=== PATIENT | male | born 1970 | race Caucasian/White ===

== ENCOUNTER 2016-12-01 06:51 | Emergency (ER) | payer BC ==
[~2016-12-01] VITALS: Ht 180.3 cm; Wt 107.6 kg
[~2016-12-01 06:51] MED LIST: ALLO100T PO; ASPEC81 PO; ATOR-24 PO; LISI-729 PO
[2016-12-01 06:55] VITALS: TEMP 36.6; O2SAT 99; Ht 180.3 cm; Wt 107.6 kg
--- NOTE | 2016-12-01 07:02 | EMERGENCY ROOM VISIT NOTE ---
History First contact with patient: 07:01 Chief Complaint: SYNCOPE Stated Complaint: SYNCOPE History of Present Illness The patient is a 46 year old male who presents to the Emergency Room with complaints of syncope which occurred approx 2 hours [employer]. The patient notes he was on the toilet and after finishing he stood up and became very diaphoretic. Soon after the patient felt dizzy and he slumped over onto the wall and suffered from a syncopal episode. It was witnessed by his uncle, no seizure like activity and no confusion after the episode. The patient denies any nausea / vomiting, chest pain, SOB, headache or palpitations prior to this episode. He has no significant cardiac history and had a negative cardiac cath in 2015 which was done for chest pain. His father did pass at the age of 38 from cardiac arrest. The patient is a non smoker. Patient has been suffering from sinusitis with ongoing rhinorrhea x 2 weeks after being treated with azithromycin. Review of Systems A 10 point review of systems was completed and was negative aside from above Past Medical/Surgical History Medical Problems: (1) Nausea (2) Precordial chest pain Family History FH: heart disease Social History Smoking Status: Never Smoker Alcohol Use: occasionally Drug Use: none Marital Status: Housing Status: lives with family Current/Historical Medications Scheduled Allopurinol (Zyloprim), 100 MG PO DAILY Aspirin (Aspirin 81), 81 MG PO QAM Atorvastatin (Lipitor), 40 MG PO DAILY Cetirizine (Zyrtec), 10 MG PO DAILY Doxycycline Hyclate (Doxycycline Hyclate), 100 MG PO BID Fish Oil ([place]-3), 1 CAP PO DAILY Lisinopril (Zestril), 5 MG PO DAILY Sertraline (Zoloft), 50 MG PO DAILY Allergies PCN Physical Exam Vital Signs Date Time Temp Pulse Resp B/P (MAP) Pulse Ox O2 Delivery O2 Flow Rate FiO2 12/01/16 08:19 72 18 137/94 97 12/01/16 07:19 68 12/01/16 07:10 63 18 136/87 99 Room Air 67 124/102 69 128/94 12/01/16 06:55 36.6 70 18 144/90 99 Room Air 12/01/16 06:55 99 Room Air Physical Exam General: ambulatory, not in acute distress Skin: no rashes noted, no suspicious lesions, no areas of inflammations/ lacerations/ erythema noted CVS: S1/ S2 noted, RRR, no rubs/ murmurs noted, no cyanosis, no peripheral edema RVS: Clear throughout bilaterally, not in acute respiratory distress, no wheezing/ rales/ crackles noted ENT: no erythema/ injection/ ulcerations noted in the pharynx, no lymphadenopathy Neck: Thyroid is not palpable, inspection WNL, full ROM of neck, no bruits noted ABD: BSx4, no pain/ tenderness on palpation, no organomegaly, negative murphys, psoas, Rovsing, CVA tenderness MSK: inspection of all limbs WNL, motor and sensation intact in all limbs, no swelling/ pain on palpation of joints NVS: PERRL, EOMI, sensation intact in all extremities Lymph: No lymphadenopathy palpable Medical Decision & Procedures ER Provider Diagnostic Interpretation: [~ rep ct add3]] CHEST ONE VIEW PORTABLE CLINICAL HISTORY: 46 years-old Male presenting with syncope. TECHNIQUE: Portable upright AP view of the chest was obtained. COMPARISON: 09/03/2015. FINDINGS: Cardiomediastinal silhouette normal. Mildly low lung volumes, unchanged. Lungs and pleural spaces clear. Osseous structures normal. Upper abdomen normal. IMPRESSION: 1. No acute cardiopulmonary disease. Laboratory Results 12/01/16 07:10 Red Blood Count 4.55, Mean Corpuscular Volume 90.3, Mean Corpuscular Hemoglobin 31.0, Mean Corpuscular Hemoglobin Concent 34.3, Mean Platelet Volume 10.7, Neutrophils (%) (Auto) 67.7, Lymphocytes (%) (Auto) 21.6, Monocytes (%) (Auto) 8.3, Eosinophils (%) (Auto) 1.8, Basophils (%) (Auto) 0.5, Neutrophils # (Auto) 5.87, Lymphocytes # (Auto) 1.87, Monocytes # (Auto) 0.72, Eosinophils # (Auto) 0.16, Basophils # (Auto) 0.04 12/01/16 07:10 Test 12/01/16 06:59 12/01/16 07:10 12/01/16 07:38 Creatine Kinase MB Ratio (0-3.0) White Blood Count 8.67 K/uL (4.8-10.8) Red Blood Count 4.55 M/uL (4.7-6.1) Hemoglobin 14.1 g/dL (14.0-18.0) Hematocrit 41.1 % (42-52) Mean Corpuscular Volume 90.3 fL (80-100) Mean Corpuscular Hemoglobin 31.0 pg (25-34) Mean Corpuscular Hemoglobin Concent 34.3 g/dl (32-36) Platelet Count 210 K/uL (130-400) Mean Platelet Volume 10.7 fL (7.4-10.4) Neutrophils (%) (Auto) 67.7 % Lymphocytes (%) (Auto) 21.6 % Monocytes (%) (Auto) 8.3 % Eosinophils (%) (Auto) 1.8 % Basophils (%) (Auto) 0.5 % Neutrophils # (Auto) 5.87 K/uL (1.4-6.5) Lymphocytes # (Auto) 1.87 K/uL (1.2-3.4) Monocytes # (Auto) 0.72 K/uL (0.11-0.59) Eosinophils # (Auto) 0.16 K/uL (0-0.5) Basophils # (Auto) 0.04 K/uL (0-0.2) RDW Standard Deviation 42.8 fL (36.4-46.3) RDW Coefficient of Variation 13.1 % (11.5-14.5) Immature Granulocyte % (Auto) 0.1 % Immature Granulocyte # (Auto) 0.01 K/uL (0.00-0.02) Anion Gap 8.0 mmol/L (3-11) Est Creatinine Clear Calc Drug Dose 102.5 ml/min Estimated GFR () 91.5 Estimated GFR (Non- 79.0 BUN/Creatinine Ratio 16.1 (10-20) Calcium Level 9.2 mg/dl (8.5-10.1) Total Bilirubin 0.5 mg/dl (0.2-1) Aspartate Amino Transf (AST/SGOT) 26 U/L (15-37) Alanine Aminotransferase (ALT/SGPT) 44 U/L (12-78) Alkaline Phosphatase 66 U/L (45-117) Creatine Kinase MB 2.6 ng/ml (0.5-3.6) Troponin I < 0.015 ng/ml (0-0.045) Total Protein 7.4 gm/dl (6.4-8.2) Albumin 3.7 gm/dl (3.4-5.0) Globulin 3.7 gm/dl (2.5-4.0) Albumin/Globulin Ratio 1.0 (0.9-2) Urine Color YELLOW Urine Appearance CLEAR (CLEAR) Urine pH 6.5 (4.5-7.5) Urine Specific [place] 1.020 (1.000-1.030) Urine Protein NEG (NEG) Urine Glucose (UA) NEG (NEG) Urine Ketones NEG (NEG) Urine Occult Blood TRACE (NEG) Urine Nitrite NEG (NEG) Urine Bilirubin NEG (NEG) Urine Urobilinogen NEG (NEG) Urine Leukocyte Esterase NEG (NEG) Urine WBC (Auto) 1-5 /hpf (0-5) Urine RBC (Auto) 0-4 /hpf (0-4) Urine Hyaline Casts (Auto) 1-5 /lpf (0-5) Urine Epithelial Cells (Auto) 10-20 /lpf (0-5) Urine Bacteria (Auto) NEG (NEG) Medications Administered Medications (Trade) Dose Ordered Sig/Adri Route Start Time Stop Time Status Last Admin Dose Admin Sodium Chloride 1,000 ml @ 999 mls/hr Q1H1M ONCE IV 12/01/16 07:15 12/01/16 08:15 DC 12/01/16 07:08 999 MLS/HR ECG Indication: syncope Rhythm: normal sinus Findings: no acute ischemic change, no ectopy Change: no significant change ED Course 0645: patient as was assessed and evaluated by the resident, work up ordered 0700: NSS 1 L @ 999/h 0800: Patient was reassessed and states he feels better after fluids. We did discuss discharge and patient agreeable Medical Decision Differential diagnosis: Etiologies such as vasovagal event, infection, hypoglycemia, electrolyte abnormalities, cardiac sources, intracerebral event, toxicologic, neurologic, as well as others were entertained. CBC did not reveal any leukocytosis or anemia. The CMP was also WNL and no acute process was noted. CXR was unremarkable and UA was WNL. EKG was completed and QTc was < 500. There was some concern for prolonged QTc considering the patient's father's early cardiac arrest. It is reassuring that the patient had a negative cath a little over a year prior making this unlikely to be cardiac in origin. The patient most likely suffered from a vasovagal event as there was no arrhythmia noted on the monitor during the patient's stay. We discussed discharge and instructions and patient was agreeable to discharge and close follow up with PCP. We did d/c with a course of doxycycline for sinusitis as patient is allergic to PCN. Blood Pressure Screening Patient's blood pressure: Elevated blood pressure Blood pressure disposition: Elevated BP felt to be situational, Referred to PCP Impression Primary Impression: Syncope Additional Impression: Vaso vagal episode Departure Information Dispostion Home / Self-Care Condition GOOD Prescriptions Doxycycline Hyclate (Doxycycline Hyclate) 100 Mg Cap 100 MG PO BID for 10 Days, #20 TAB Prov: Zahida Dumont MD 12/01/16 Referrals Leana Velazquez M.D. (PCP) Patient Instructions My [facility] Problem Qualifiers
--- NOTE | 2016-12-01 07:02 | EMERGENCY ROOM VISIT NOTE ---
ED Visit Note First contact with patient: 06:54 Resident Physician Supervision Note: I was present with Dr. Dumont during the history and exam. I discussed the case with the resident and agree with the findings and plan as documented in the note. Documented By: Vasquez Song Current/Historical Medications Scheduled Allopurinol (Zyloprim), 100 MG PO DAILY Aspirin (Aspirin EC Low Dose), 81 MG PO DAILY Atorvastatin (Lipitor), 1 TAB PO DAILY Lisinopril (Zestril), 5 MG PO DAILY Allergies Coded Allergies: Penicillins (Verified Allergy, Severe, ANAPHYLAXIS, 09/03/15) Departure Information Referrals Leana Velazquez M.D. (PCP) Patient Instructions My [facility]
[2016-12-01] MEDS ORDERED: SODIUM CHLORIDE 0.9% 1000ML 1,000 ML IV ONE (07:15)
[2016-12-01 07:30] LABS: BASO % 0.5 %; BASO ABS # 0.04 K/uL (0-0.2); COMPLETE YES; EOS % 1.8 %; HEMATOCRIT 41.1 % (42-52); IG% 0.1 %; LYMPH % 21.6 %; LYMPH ABS # 1.87 K/uL (1.2-3.4); MEAN CELL VOLUME 90.3 fL (80-100); MEAN CORPUSCULAR HGB CONC 34.3 g/dl (32-36); MEAN PLATELET VOLUME 10.7 fL (7.4-10.4); MONO % 8.3 %; NEUT % 67.7 %; PLATELET COUNT 210 K/uL (130-400); RED BLOOD COUNT 4.55 M/uL (4.7-6.1); WHITE BLOOD COUNT 8.67 K/uL (4.8-10.8)
[2016-12-01 07:37] LABS: BLOOD UREA NITROGEN 18 mg/dl (7-18); BUN/CREATININE RATIO 16.1 (10-20); CALCIUM 9.2 mg/dl (8.5-10.1); CARBON DIOXIDE 26 mmol/L (21-32); CHLORIDE 104 mmol/L (98-107); GLUCOSE 105 mg/dl (70-99); POTASSIUM 3.8 mmol/L (3.5-5.1); SODIUM 138 mmol/L (136-145)
[2016-12-01] MEDS ORDERED: CETI10TA84 PO (07:38)
[2016-12-01] MEDS ORDERED: ATOR-24 PO (07:38)
[2016-12-01] MEDS ORDERED: ASPI-435 PO (07:38)
[2016-12-01] MEDS ORDERED: SERT50TA PO (07:38)
[2016-12-01] MEDS ORDERED: OMEG10007 PO (07:38)
[2016-12-01 07:42] LABS: ALKALINE PHOSPHATASE 66 U/L (45-117); ALT/SGPT 44 U/L (12-78); AST/SGOT 26 U/L (15-37)
[2016-12-01 07:52] LABS: URINE APPEARANCE CLEAR (CLEAR); URINE BILIRUBIN NEG (NEG); URINE COLOR YELLOW; URINE NITRITE NEG (NEG); URINE PH 6.5 (4.5-7.5); UROBILINOGEN NEG (NEG); ZZUR CULT IF INDIC CLEAN CATCH NO
[2016-12-01 07:59] LABS: MANUAL MICROSCOPIC REQUIRED? NO; REVIEW REQ? NO
[2016-12-01] MEDS ORDERED: DXY/100 PO (08:05)
[2016-12-01 08:19] VITALS: BP 137/94; PULSE 72; O2SAT 97
--- NOTE | 2016-12-01 09:04 | DIAGNOSTIC IMAGING REPORT ---
CHEST ONE VIEW PORTABLE CLINICAL HISTORY: 46 years-old Male presenting with syncope. TECHNIQUE: Portable upright AP view of the chest was obtained. COMPARISON: 09/03/2015. FINDINGS: Cardiomediastinal silhouette normal. Mildly low lung volumes, unchanged. Lungs and pleural spaces clear. Osseous structures normal. Upper abdomen normal. IMPRESSION: 1. No acute cardiopulmonary disease. Electronically signed by: Senthil Ann M.D. 12/01/2016 9:03 AM Dictated Date/Time: 12/01/2016 9:02 AM
== END 2016-12-01 08:23 | disposition home or self-care (01) ==
LOC: EDBD 06:51 → C.EDB 06:54
DX: R55 Syncope and collapse (principal); Z82.49 Family history of ischemic heart disease and other diseases of the circulatory system; Z79.82 Long term (current) use of aspirin; Z79.899 Other long term (current) drug therapy